=== PATIENT | male | born 1975 | race Caucasian/White ===

== ENCOUNTER 2022-01-22 07:59 | Day surgery (SDC) | payer OTHER ==
[2022-01-22] VITALS (194 sets, daily range): BP systolic 77–166; BP diastolic 36–105
[~2022-01-22] VITALS: Ht 175.3 cm; Wt 124.0 kg
--- NOTE | 2022-01-22 07:57 | NUR ---
PT ARRIVED TO FLOOR ACCOMPAINED BY . PT A&O X4. AMBULATORY WITH STEADY GAIT. NO APPARENT DISTRESS NOTED. PT ORIENTED TO ROOM AND CALL LIGHT SYSTEM. CONSENTS OBTAINED AT THIS TIME. DISCUSSED POC AND SAFETY PRECAUTIONS. PT VERBALIZED UNDERSTANDING. CALL LIGHT WITHIN REACH. WILL CONTINUE TO MONITOR..
[2022-01-22 08:41] LABS: HEMATOCRIT 44.4 % (39.0-50.0); HEMOGLOBIN 14.3 g/dl (14.0-18.0); IMMATURE GRANULOCYTES 0.2 % (0.0-5.0); MEAN CELL VOLUME 95.1 fL CALC (80.0-100.0); MEAN CORPUSCULAR HGB 30.6 pG CALC (26.0-32.0); MEAN CORPUSCULAR HGB CONC 32.2 g/dL CAL (32.0-36.0); NEUT# 5.22 thou/uL (1.82-7.42); RED BLOOD COUNT 4.67 mill/uL (4.70-6.10); RED CELL DISTRI WIDTH 13.4 % (11.5-15.5)
--- NOTE | 2022-01-22 08:55 | NUR ---
VS OBTAINED, CALLED TO DR. VALDES. NEW ORDERS RECEIVED, WILL SEND TO PHARMACY AND MEDICATE ONCE PROFILED.
[2022-01-22 09:21] LABS: ALKALINE PHOSPHATASE 73 u/l (38-126); ANION GAP 7 (6-22 (CALC)); BILIRUBIN, TOTAL 0.4 mg/dL (0.0-1.4); BUN 15 mg/dL (9-20); BUN/CREATININE RATIO 19 (12-20 (CALC)); CARBON DIOXIDE 32 mmol/l (22-30); CHLORIDE 102 mmol/l (95-108); CREATININE 0.8 mg/dL (0.7-1.3); GFR > 60 ML/MIN (>=60 (CALC)); GFR FOR AFR.AMER. > 60 ML/MIN (>=60 (CALC)); POTASSIUM 4.3 mmol/l (3.5-5.1); SGOT/AST 27 u/l (17-59); SODIUM 137 mmol/l (137-146); TOTAL PROTEIN 7.6 g/dL (6.3-8.2)
--- NOTE | 2022-01-22 09:43 | NUR ---
DR. VALDES AT BEDSIDE.
--- NOTE | 2022-01-22 12:00 | NUR ---
Induction Note Patient to [facility] procedure room. Time out performed at 1205. Patient placed on monitors, Long hugger, bilateral wrist restraints applied for ET tube protection. Versed 5mg given IV push at 1206 Tourniquet applied to rt arm Lidocaine 100mg given [id number] IV push followed by Rocoronium 10mg at 1208 IV push and held for 90 seconds. Propofol bolus of 120mg given at 1210 IV push. Succinylcholine 80mg given IV push at 1212. Smooth intubation with 7.5 ETT. Positive CO2. Positive Auscultation for air exchange. Patient placed on ventilator for spontaneous ventilation. Placed on Propofol IV drip at 8ml/hr . OG inserted. Positive air on auscultation. Positive gastric content. Stomach washed at this time. Naltrexone 75mg given via OG tube with Clonidine 0.3 mg given via OG Tube. OG clamped for 45 minutes. Will monitor patient for symptoms of withdrawal and adjust propfol accordingly.
--- NOTE | 2022-01-22 12:51 | NUR ---
neosynepherine push iv for hypotension as ordered by Dr Londono to maintain bps
--- NOTE | 2022-01-22 13:11 | NUR ---
OG open note OG open at this time. Gastric content draining into drainage bag. OG to drain for 45 minutes. Propofol will be titrated down based on patient.
--- NOTE | 2022-01-22 13:56 | NUR ---
OG close note Stomach washed at this time. Naltrexone 50 mg with Clonidine 0.2 mg via OG tube. OG will be clamped for 45 minutes.
--- NOTE | 2022-01-22 15:26 | NUR ---
OG close note Stomach washed at this time. Naltrexone 50 mg with Clonidine 0.2 mg via OG tube. OG will be clamped for 45 minutes.
--- NOTE | 2022-01-22 18:03 | NUR ---
OG close note Stomach washed at this time. Naltrexone 25 mg with Clonidine 0.3 mg via OG tube. OG will be clamped AND PREPARE FOR EXTUBATION.
--- NOTE | 2022-01-22 18:30 | NUR ---
Extubation note Closing medications given Benadryl 50mg IV push, Decadron 10mg IV push,Magnesium 4 grams IV, Zofran 8mg IV push, Octreotide 100mcg SC. Stomach washed out prior to extubation. Suctioned gastric content. OG removed. Patient extubated. Propofol Discontinued. Wrist restraints removed. Long hugger Removed. See [facility]R Moderate sedate recovery record for further notes and assessment.
--- NOTE | 2022-01-22 19:02 | NUR ---
REPORT RECEIVED FROM Pablo DALEY LPN. PATIENT ARRIVED ON FLOOR VIA STRETCHER ACCOMPANIED BY Pablo DALEY LPN.
--- NOTE | 2022-01-22 19:09 | NUR ---
PATIENT TO [facility] VIA BED. REPORT GIVEN TO LINNETTE RESTREPO
--- NOTE | 2022-01-22 20:07 | NUR ---
VALIUM GIVEN PER MD ORDER.
--- NOTE | 2022-01-22 20:08 | NUR ---
PATIENT ASSESMENT COMPLETED AT THIS TIME. PATIENT UNABLE TO SPEAK CLEARLY, ABLE TO STATES HIS NAME AND AGE BUT REQUIERES REORIENTATION TO TIME AND PLACE. LABORED BREATHING, RR OF 18 CURRENTLY ON 2L VIA NASAL CANNULA SATURATING 97%. NORMAL HEART RHYTM, APICAL RATE OF 78. PATIENT TO BE MEDICATED FOR BACK PAIN, ORDERS PENDING PHARMACY VERIFICATION.#18 IN LEFT HAND AND #20 IN RIGHT ANTECUBITAL. BOTH FLUSHED AND PATENT. SKIN DRY AND INTACT. CALL LIGHT AND BEDSIDE TABLE WITHIN REACH.
--- NOTE | 2022-01-22 22:02 | NUR ---
PATIENT UP TO THE RESTROOM WITH ASSIST X2. PATIENT ABLE TO CLEARLY VEBALIZE NEEDS.
--- NOTE | 2022-01-22 22:53 | NUR ---
PATIENT MEDICATED FOR BACK PAIN, RATING 4/10
--- NOTE | 2022-01-22 23:10 | NUR ---
PATIENT SITTING UP IN RECLINER AT BEDSIDE, PER PT REQUEST. PATIENT AMBULATED TO RECLINER WITH STANDBY ASSIT OF 1. CALL LIGHT WITHIN PATIENTS REACH, INSTRUCTED PATIENT TO CALL FOR ASSISTANCE.
--- NOTE | 2022-01-22 23:18 | NUR ---
PATIENT MEDICATED PER EMAR.
--- NOTE | 2022-01-22 23:32 | NUR ---
PATIENT BACK IN BED.
--- NOTE | 2022-01-23 00:40 | NUR ---
PATIENT RESTING IN BED, ASKING FOR OXYCODONE FOR HIS BACK PAIN, INFORMED PATIENT WRITTER HAD MEDICATED HIM WITH TORADOL, ASSITED IN REPOSIIONING PATINET. CALL LIGHT AND BEDSIDE TABLE WITHIN REACH.
--- NOTE | 2022-01-23 02:17 | NUR ---
PATIENT REQUESTING SHOWER. SHOWER SET UP, IV SITES COVERED WITH AQUGUARD. PATIENT ASSITED TO BATHROOM, TOILETRIES PROVIDED. BED LINEN CHANGED. CORD PROVIDED TO PATIENT AND ISTRUCTED ON USE
[2022-01-23 03:18] VITALS: BP 118/52
--- NOTE | 2022-01-23 03:54 | NUR ---
PATIENT MEDICATED PER EMAR, SEE EMAR.
--- NOTE | 2022-01-23 04:06 | NUR ---
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
[2022-01-23 05:16] LABS: HEMATOCRIT 41.6 % (39.0-50.0); HEMOGLOBIN 13.9 g/dl (14.0-18.0); IMMATURE GRANULOCYTES 0.2 % (0.0-5.0); MEAN CELL VOLUME 91.4 fL CALC (80.0-100.0); MEAN CORPUSCULAR HGB 30.5 pG CALC (26.0-32.0); MEAN CORPUSCULAR HGB CONC 33.4 g/dL CAL (32.0-36.0); NEUT# 8.82 thou/uL (1.82-7.42); RED BLOOD COUNT 4.55 mill/uL (4.70-6.10); RED CELL DISTRI WIDTH 13.1 % (11.5-15.5)
[2022-01-23 05:28] LABS: ALKALINE PHOSPHATASE 81 u/l (38-126); ANION GAP 12 (6-22 (CALC)); BILIRUBIN, TOTAL 0.5 mg/dL (0.0-1.4); BUN 9 mg/dL (9-20); BUN/CREATININE RATIO 13 (12-20 (CALC)); CARBON DIOXIDE 26 mmol/l (22-30); CHLORIDE 103 mmol/l (95-108); CREATININE 0.7 mg/dL (0.7-1.3); GFR > 60 ML/MIN (>=60 (CALC)); GFR FOR AFR.AMER. > 60 ML/MIN (>=60 (CALC)); MAGNESIUM 2.1 mg/dL (1.6-2.3); POTASSIUM 3.9 mmol/l (3.5-5.1); SGOT/AST 45 u/l (17-59); SODIUM 137 mmol/l (137-146); TOTAL PROTEIN 7.1 g/dL (6.3-8.2)
--- NOTE | 2022-01-23 06:03 | NUR ---
PATIENT COMPLAINING OF BACK PAIN, PATIENT REFUSES HEAT PAD, AND STATES TORADOL "DOES NOT DO ANYHTING". OFFERED TO REPOSITION PATIENT MULTIPLE TIMES, PATIENT REFUSES.
[2022-01-23 08:38] VITALS: BP 118/52
--- NOTE | 2022-01-23 10:20 | NUR ---
Discharge instructions given. Patient verbalizes understanding of same. Discharged in stable condition via Ambulatory to Home with family. All belongings sent with pt.
== END 2022-01-23 10:35 | disposition home or self-care (01) | DRG 897 ==
LOC: ANR 07:59 → MS2 07:59 → ANR 11:10
PROVIDERS: ATTEND Anesthesiology
DX: F11.20 Opioid dependence, uncomplicated (principal)
CPT/HCPCS: J0131; J2060; J2354; J3475